=== PATIENT | female | born 1970 | race Caucasian/White ===

== ENCOUNTER 2022-02-05 09:08 | Day surgery (SDC) | payer BC ==
--- NOTE | 2022-01-30 14:41 | RAD REPORT ---
EXAM DESCRIPTION: RAD - Chest Pa And Lat (2 Views) - 01/30/2022 2:14 pm CLINICAL HISTORY: Pre op pending surgery COMPARISON: November 2013 TECHNIQUE: Frontal and lateral views of the chest were obtained. FINDINGS: The lungs are clear. Loop recorder is present in soft tissues anterior to the lower left chest. Heart size is normal and central vasculature is within normal limits. No pleural effusion or pneumothorax seen. No acute bony finding noted. No aortic abnormality. No significant change from comparison study. IMPRESSION: No acute cardiopulmonary process.
[2022-01-30 14:46] LABS: Absolute Lymphocytes (CBC) 1.4 K/uL (0.7-4.9); Hematocrit 39.8 % (36.0-45.0); Lymphocytes % 23.4 % (15.3-44.8); MPV 8.7 fL (7.6-11.3); RBC Red Blood Cell Count 4.25 M/uL (3.86-4.86)
[2022-01-30 14:49] LABS: Protime INR 0.96
[2022-01-30 14:51] LABS: Bilirubin Direct 0.2 mg/dL (0-0.2); Bilirubin Total 0.7 mg/dL (0.2-1.0); Potassium 3.7 mmol/L (3.5-5.1); Protein, Total 7.4 g/dL (6.4-8.2)
[2022-01-30 15:11] LABS: Urine Appearance Clear (Clear); Urine Bilirubin Negative (Negative); Urine Blood Trace-lysed (Negative); Urine Color Yellow (Yellow); Urine Glucose Negative (Negative); Urine Protein Negative (Negative); Urine Specific Gravity >=1.030 (1.005-1.030); Urine Urobilinogen 0.2 mg/dL (0.2-1.0); Urine pH 5.5 (5.0-7.0)
[2022-01-30 15:12] LABS: Urine Microscopic Reflex ORDER UMIC
[2022-01-30 16:05] LABS: Urine Bacteria <20 /HPF (<20); Urine RBC <5 /HPF (NONE SEEN)
[2022-02-05] MEDS ORDERED: Ringers Lactate 1,000 ML IV ONE (09:49)
[2022-02-05 09:54] VITALS: O2SAT 100
[2022-02-05] MEDS ORDERED: LIDOCAINE 1% W/EPI 1:100,000 10 ML VIAL ONE (09:59)
[2022-02-05] MEDS ORDERED: SILVER NITRATE 1 APPL TOP ONE (09:59)
[2022-02-05] MEDS ORDERED: FENTANYL CITR 100 MCG/2 ML ONE (11:03)
[2022-02-05] MEDS ORDERED: propofoL 200 MG/20 ML VIAL IV ONE ×2 (11:03→11:37)
[2022-02-05] MEDS ORDERED: MIDAZOLAM HCL 2 MG/2 ML INJ ONE ×2 (11:04→11:19)
[2022-02-05] MEDS ORDERED: LIDOCAINE 1% MPF 5 ML VIAL ONE (11:04)
[2022-02-05] MEDS ORDERED: ONDANSETRON 4 MG/2 ML VIAL ONE (11:07)
[2022-02-05] MEDS ORDERED: HYDROCODONE/APAP 5/325 MG TAB PO PRN (11:54)
[2022-02-05] MEDS ORDERED: PROMETHAZINE INJ 25 MG/ML AMP IV PRN (11:54)
--- NOTE | 2022-02-05 11:57 | P.BOP ---
Preoperative diagnosis: leiomyoma Postoperative diagnosis: same and endometrial polyp Primary procedure: operative hysteroscopy polypectomy d/c Test Baker: NONE,NONE Estimated blood loss: min Specimen: polyp andEMC Findings: polyp left cornual end, thick lining, post wall myoma, not protruding Anesthesia: General Complications: None Transferred to: Recovery Room Condition: Good
[2022-02-05] MEDS ORDERED: KETOROLAC 30 MG/ML INJ ONE (11:58)
[2022-02-05] MEDS ORDERED: HOME MED 1 EA UNK (Naproxen Sodium [Aleve] 220 MG Tablet) PO SCH (12:00)
[2022-02-05 13:09] VITALS: BP 155/91; TEMP 96.5
--- NOTE | 2022-02-06 00:22 | OP ---
Date of Procedure: 02/05/2022 Surgeon: Angela Pino MD Thread Separator: None. Preoperative Diagnoses: Irregular periods, leiomyomata. Postoperative Diagnoses: Irregular periods, leiomyomata, and endometrial polyp. Procedures Performed: Operative hysteroscopy, polypectomy, and dilatation and curettage. Anesthesia: General with LMA. Specimens: Endometrial polyp and curettings. Complications: None. Drains: None. Condition: Stable. Findings: Endometrial canal has the impression of a subendometrial posterior wall myoma. There was an endometrial polyp in the left cornual area which was completely resected with hysteroscopic scisso rs and retrieved in total. Endometrial lining was thickened, but no irregularity was noted. Indication: The patient is a 52-year-old with irregular periods. She underwent a transvaginal ultra sound which showed leiomyomata, also thickened endometrium, needed endometrial sampling to rule out l eiomyosarcoma or endometrial adenocarcinoma or polyp. She was consented and brought to the OR as she was intolerant of an exam. Exam under anesthesia, she had a Pap smear done. Then, we did an operat imani hysteroscopy. Procedure In Detail: The patient was consented, taken back to the OR, placed in supine fashion on th e operating table. She was given MAC first and she was still not able to tolerate a pelvic exam, so she was given a general with LMA. Then, vulva and vagina were prepped. Cervix was first exposed wit h a speculum. Then, Pap smear was done. Once this was handed out, then the rest of the cervix and v agina were prepped. Anterior lip grasped with 2 Allis clamps. [employer] diagnostic hysteroscope intr oduced through the cervical canal into the uterine cavity. A polyp was seen as described above. The n, scope was pulled out. Cervix was dilated to 16-Azeri. Operative hysteroscope was introduced wit h the scissors in the operating channel. The base of the polyp was identified and the entire polyp w as cut with the help of scissors. Then, using hysteroscopic polyp forceps, the polyp was grasped and brought out through the cervical canal and handed out in total. Then, endometrial curettings were p erformed with a #1 curette and these were all handed out for permanent pathology. All instruments we re removed. Instrument, needle, and sponge counts were correct at the end of the case. The patient tolerated the procedure well. She was recovered from anesthesia and taken to the PACU in a stable co ndition. No evidence of any atrial fibrillation during the case or postop. She has a 1-week followu p with me. MARGARITA Voice ID: [id number] Report ID: [id number]
== END 2022-02-05 13:38 | disposition home or self-care (01) ==
LOC: OR 09:08
PROVIDERS: ATTEND Obstetrics & Gynecology
PROC: 0UJD8ZZ Inspection of Uterus and Cervix, Via Natural or Artificial Opening Endoscopic (ICD-10-PCS; 2022-02-05)
PROC: 0UB97ZX Excision of Uterus, Via Natural or Artificial Opening, Diagnostic (ICD-10-PCS; principal; 2022-02-05 10:30)
PROC: 0UDB7ZX Extraction of Endometrium, Via Natural or Artificial Opening, Diagnostic (ICD-10-PCS; 2022-02-05 10:30)
DX: N92.6 Irregular menstruation, unspecified (principal); D25.9 Leiomyoma of uterus, unspecified; R10.2 Pelvic and perineal pain; I48.20 Chronic atrial fibrillation, unspecified; E03.9 Hypothyroidism, unspecified; F41.9 Anxiety disorder, unspecified; Z20.822 Contact with and (suspected) exposure to COVID-19
CPT/HCPCS: 87088; 85025; 87086; 80048; 36415; 81025; 85610; 80076; 88305; 85730; 71046; 58558; U0002; J2704 ×2; J2250 ×2; J3010; J7120; J2405; 81003; 81015